=== PATIENT | female | born 1960 | race American Indian/Alaskan Native ===

== ENCOUNTER 2017-08-09 10:15 | Emergency (ER) | payer OTHER ==
--- NOTE | 2017-08-09 11:20 | XRay Report ---
Chest 2 views: History: Dyspnea. Findings: Normal cardiomediastinal silhouette. The trachea is midline. Circumscribed density measuring 2 cm in diameter noted at the right lower lobe adjacent to the diaphragm. This may be part of normal configuration of diaphragm or round atelectasis or pneumonitis. Not seen on the lateral radiograph. Normal CP angles. Impression: Findings as detailed above. Followup or further evaluation is recommended if clinical indicated Impression:
[2017-08-09 11:29] LABS: Basophils % (Auto) 0.8 % (0.0-1.8); Eosinophils # (Auto) 0.1 K/mm3 (0.0-0.4); Eosinophils % (Auto) 1.3 % (0.0-4.3); Hematocrit 41.9 % (30.3-42.9); Hemoglobin 14.2 gm/dl (10.1-14.3); Lymphocytes # (Auto) 1.4 K/mm3 (1.2-5.4); Lymphocytes % (Auto) 24.1 % (13.4-35.0); Mean Corpuscular HGB Conc 34 % (30-34); Mean Corpuscular Hemoglobin 29 pg (28-32); Mean Corpuscular Volume 85 fl (79-97); Monocytes # (Auto) 0.3 K/mm3 (0.0-0.8); Platelet Count 198 K/mm3 (140-440); Red Blood Count 4.93 M/mm3 (3.65-5.03); Red Cell Distribution Width 14.1 % (13.2-15.2)
[2017-08-09 11:38] LABS: BUN/Creatinine Ratio 14; Blood Urea Nitrogen 10 mg/dL (7-17); Hemolysis Index 3
[2017-08-09 14:23] VITALS: BP 153/80
--- NOTE | 2017-08-09 14:38 | Emergency Department Report ---
ED Shortness of Breath HPI - General Chief Complaint: Dyspnea/Respdistress Stated Complaint: SHORTNESS OF BREATH Time Seen by Provider: 08/09/17 13:07 Source: patient (She has had productive cough and SHOB especially on exertion for 3 weeks. Improved a little on Doxycycline that was prescribed for acute bronchitis but the symptoms are still there. No h/o chronic lung disease. ) Mode of arrival: Ambulatory Limitations: No Limitations - Related Data Previous Rx's Medication Instructions Recorded Last Taken Type Ciprofloxacin HCl [Cipro] 500 mg PO BID 10 Days tablet 08/09/17 Unknown Rx Prednisone 50 mg PO DAILY 7 Days tablet 08/09/17 Unknown Rx Allergies Allergy/AdvReac Type Severity Reaction Status Date / Time No Known Allergies Allergy Unverified 08/09/17 10:36 ED Review of Systems ROS: Stated complaint: SHORTNESS OF BREATH Other details as noted in HPI Constitutional: denies: chills, fever Eyes: denies: eye pain, eye discharge, vision change ENT: denies: ear pain, throat pain Respiratory: see HPI, cough, shortness of breath. denies: wheezing Cardiovascular: denies: chest pain, palpitations Endocrine: no symptoms reported Gastrointestinal: denies: abdominal pain, nausea, diarrhea Genitourinary: denies: urgency, dysuria, discharge Musculoskeletal: denies: back pain, joint swelling, arthralgia Skin: denies: rash, lesions Neurological: denies: headache, weakness, paresthesias Psychiatric: denies: anxiety, depression Hematological/Lymphatic: denies: easy bleeding, easy bruising ED Past Medical Hx - Past Medical History Additional medical history: high cholesterol - Surgical History Additional Surgical History: cyst removed from right armpit and left breast - Social History Smoking Status: Never Smoker Substance Use Type: Alcohol - Medications Home Medications: Home Medications Medication Instructions Recorded Confirmed Last Taken Type Ciprofloxacin HCl [Cipro] 500 mg PO BID 10 Days tablet 08/09/17 Unknown Rx Prednisone 50 mg PO DAILY 7 Days tablet 08/09/17 Unknown Rx ED Physical Exam - General Limitations: No Limitations General appearance: alert, in no apparent distress - Head Head exam: Present: atraumatic, normocephalic - Eye Eye exam: Present: normal appearance - ENT ENT exam: Present: mucous membranes moist - Neck Neck exam: Present: normal inspection - Respiratory Respiratory exam: Present: normal lung sounds bilaterally. Absent: respiratory distress - Cardiovascular Cardiovascular Exam: Present: regular rate, normal rhythm. Absent: systolic murmur, diastolic murmur, rubs, gallop - GI/Abdominal GI/Abdominal exam: Present: soft, normal bowel sounds - Extremities Exam Extremities exam: Present: normal inspection - Back Exam Back exam: Present: normal inspection - Neurological Exam Neurological exam: Present: alert, oriented X3 - Psychiatric Psychiatric exam: Present: normal affect, normal mood - Skin Skin exam: Present: warm, dry, intact, normal color. Absent: rash ED Course Vital Signs 08/09/17 08/09/17 08/09/17 10:32 12:46 13:00 Temperature 98.7 F Pulse Rate 74 54 L 56 L Respiratory 16 14 15 Rate Blood Pressure 165/71 166/78 154/75 O2 Sat by Pulse 100 100 99 Oximetry 08/09/17 08/09/17 08/09/17 13:16 13:46 14:00 Temperature Pulse Rate 57 L 64 62 Respiratory 14 14 17 Rate Blood Pressure 154/75 151/74 153/80 O2 Sat by Pulse 99 100 99 Oximetry 08/09/17 08/09/17 14:16 14:24 Temperature Pulse Rate 62 Respiratory 18 18 Rate Blood Pressure 153/80 O2 Sat by Pulse 100 Oximetry - Reevaluation(s) Reevaluation #1: 08/09/17 14:39 Her breathing is better. I explained to her the CXR findings and asked her to follow up with her PCP for the presumably lung nodule. ED Medical Decision Making - Lab Data Result diagrams: 08/09/17 11:05 08/09/17 11:05 Critical care attestation.: If time is entered above; I have spent that time in minutes in the direct care of this critically ill patient, excluding procedure time. ED Disposition Clinical Impression: Lung nodule seen on imaging study Acute bronchitis Qualifiers: Bronchitis organism: unspecified organism Qualified Code(s): J20.9 - Acute bronchitis, unspecified Disposition: - TO HOME OR SELFCARE Is pt being admited?: No Does the pt Need Aspirin: No Condition: Stable Instructions: Acute Bronchitis (ED) Prescriptions: Ciprofloxacin HCl [Cipro] 500 mg PO BID 10 Days tablet Prednisone 50 mg PO DAILY 7 Days tablet Referrals: JANAK IBRAHIM MD [Primary Care Provider] - 3-5 Days Time of Disposition: 14:36
== END 2017-08-09 15:11 | disposition home or self-care (01) ==
LOC: ED 10:15
DX: J20.9 Acute bronchitis, unspecified (principal); R91.1 Solitary pulmonary nodule; E78.00 Pure hypercholesterolemia, unspecified
CPT/HCPCS: 36415; 71046; 80048; 84484; 85025; 85379; 93005; 93010